=== PATIENT | male | born 1965 | race Caucasian/White ===

== ENCOUNTER 2024-05-04 15:32 | Emergency (ER) | payer SELFPAY ==
[~2024-05-04] VITALS: Ht 180.3 cm; Wt 104.3 kg
[2024-05-04 15:50] VITALS: BP 170/97; PULSE 78; RESP 18; TEMP 98.4; O2SAT 95
--- NOTE | 2024-05-04 15:56 | NUR ---
PT AMB TO BED 2
--- NOTE | 2024-05-04 15:56 | NUR ---
to bed 2.
--- NOTE | 2024-05-04 16:15 | NUR ---
59YO MALE PT C/O VISUAL AND AUDIO HALLUCINATIONS [id number]. REPORTS WORSING SINCE FIRST ONSET. DENIES SI OR HI. STATES UPCOMING PENDING APPT W/ PSYCHIATRIST. PT AAOX4, NAD. HOB POSITIONED PER COMFORT. CALL LIGHT WITHIN REACH. HX: ANXIETY NKA
[2024-05-04] MEDS ORDERED: OLAN5TAB1 PO (16:38)
[2024-05-04 16:45] VITALS: BP 148/95; PULSE 77; RESP 16; TEMP 98.4; O2SAT 99
--- NOTE | 2024-05-04 16:45 | NUR ---
Patient discharged with v/s stable. Written and verbal after care instructions FOR PSYCHOSIS given and explained. Patient alert, oriented and verbalized understanding of instructions. Ambulatory with steady gait. All questions addressed prior to discharge. ID band removed. Patient advised to follow up with PMD. Rx of ZYPREXA given. Opportunity to ask questions provided and answered. MENTAL HEALTH RESOURCES PROVIDED
--- NOTE | 2024-05-04 17:06 | NUR ---
Chart checked and completed. The patient's care was reviewed and supervised by YOHANA VU RN.
== END 2024-05-04 16:45 | disposition home or self-care (01) ==
LOC: MED 15:32
DX: F29 Unspecified psychosis not due to a substance or known physiological condition (principal); F41.9 Anxiety disorder, unspecified; Z79.899 Other long term (current) drug therapy
CPT/HCPCS: 99283